=== PATIENT | female | born 1960 | race Caucasian/White ===

== ENCOUNTER → 2016-08-11 | Outpatient (CLI) | payer OTHER ==
[~2016-08-11] MED LIST: IOHEXOL 300 MG/ML 100ml INJECTION ONE; LORA10TA62 PO; NORMAL SALINE 100 ML ONE; SALINE FLUSH 10ml SYRINGE ONE
--- NOTE | 2016-08-11 17:18 | DI ---
Indication: ITS.REASON: R10.12 LEFT UPPER QUAD PAIN PROCEDURE: CT ABD/PELVIS W/CONTRAST ONLY: Encounter: Initial Comparison: None Technique: Axial CT images were performed through the abdomen and pelvis after the administration of intravenous contrast. Coronal and sagittal two-dimensional reformats. Automated Exposure Control and Iterative Reconstruction dose reducing techniques were utilized. Contrast: Omnipaque 300 99 mL Findings: The right middle lobe shows a small 4 to 5 mm subpleural tag on axial image #5. The lung bases are otherwise clear. The liver shows multiple cysts without enhancing mass or bile duct dilatation. The gallbladder appears normal. The spleen appears normal. The pancreas and adrenal glands are within normal limits. The kidneys are normal. No abdominal or pelvic lymphadenopathy. The bladder shows slight wall thickening anteriorly. The uterus is within normal limits. Ovaries are grossly normal. No free fluid. No evidence of a bowel obstruction. Bone windows show no acute findings. Impression: 1. No acute disease process seen. No clear etiology for the patient's left upper quadrant pain. 2. Slight bladder wall thickening could relate to the relatively decompressed state or a cystitis. Recommend clinical and laboratory correlation as indicated. 3. 4 to 5 mm noncalcified right middle lobe pulmonary nodule. Recommend follow-up noncontrast chest CT in six months. .
== END ==
LOC: IMA 08:14
PROVIDERS: ATTEND Family Medicine
DX: R10.12 Left upper quadrant pain (principal); N32.9 Bladder disorder, unspecified; R91.1 Solitary pulmonary nodule
CPT/HCPCS: 74177; J7050; Q9967

== ENCOUNTER 2016-08-27 22:11 | Emergency (ER) | payer OTHER ==
[~2016-08-27] VITALS: Ht 157.5 cm; Wt 73.6 kg
[~2016-08-27 22:11] MED LIST changes: -IOHEXOL 300 MG/ML 100ml INJECTION ONE; -NORMAL SALINE 100 ML ONE; -SALINE FLUSH 10ml SYRINGE ONE
[2016-08-27 22:15] VITALS: Ht 157.5 cm; Wt 73.6 kg
--- NOTE | 2016-08-27 22:29 | NUR ---
PROVIDER DR GUERRERO IN TO SEE PATIENT.
--- NOTE | 2016-08-27 22:37 | ERPDOC ---
Departure Disposition Decision Date: Aug 27, 2016 Disposition Decision Time: 22:37 Disposition: 01 DISCHARGED HOME, SELF-CARE Impression Impression Impression: Primary Impression: Abnormal stools Severity: Mild Condition: Improved Seen By: Physician only Referrals: MILADIS SMILEY (Family) Patient Instructions: ED Abdominal Pain Problems/Meds/Labs Reviewed?: Yes Medications reviewed and manag: Yes Additional Instructions: See Dr. Smiley as scheduled tomorrow, take your stool samples and follow up as directed Follow up care ordered?: Yes HPI - Abdominal Pain General Chief Complaint: Nausea,Vomiting,Diarrhea Stated Complaint: BOWEL ISSUES Time Seen by Provider: 22:13 Source: patient, family History/Exam Limitations: no limitations HPI - Abdominal Pain Initial Comments Patient has been having irregular bowel movements with a feeling of a lump in her left abdomen for several months. She has undergone extensive testing including MRIs CTs and multiple labs. Patient has noticed a near white stringy particles as well as seedlike particles in her stool for the past several days, and use a stool sample that she collected to take to Dr. Miladis Smiley's clinic tomorrow. When she looked the stool sample she saw what she thought were use of worm bodies, and in her words "freaked out." Patient is having no significant physical distress at this time, but is quite concerned that she has things growing inside of her. Occurred At: home Onset: Gradual Allergies: Coded Allergies: No Known Allergies (Unverified , 05/19/14) Past History Past Medical History Psychological: anxiety Surgical History Denies Surgeries Vaccines Hx Influenza Vaccination: No Review of Systems Constitutional Constitutional: DENIES: appetite decrease, appetite increase, chills, dizziness , fever, weakness ENMT Ears: DENIES: pain Hearing: DENIES: hearing loss, tinnitus Balance: DENIES: vertigo Mouth/Throat: DENIES: change in swallowing, change in voice, hoarsness, painful swallowing, sore throat Cardiovascular Cardiac: DENIES: chest pain, dyspnea on exertion Rhythm/Rate: DENIES: irregular beat, palpitations, tachycardia Vascular: DENIES: pedal edema Pulmonary Respiratory: DENIES: cough, dyspnea, pleuritic chest pain GI Upper Abdomen: DENIES: dysphagia, heartburn/indigestion, nausea, pain, vomiting Lower Abdomen: DENIES: blood in stool, constipation, diarrhea, pain General: DENIES: burning, dysuria, frequency, pain, urgency Musculoskeletal General: DENIES: cramps, joint pain, joint swelling, pain, weakness Integumentary Skin: DENIES: rash, sores Neurological General: DENIES: headache, numbness, tingling, vertigo, weakness Physical Exam General General Nourishment: well nourished, well developed, appears stated age Distress Description Patient is significantly anxious, bordering on hysteria General Body Habitus: well groomed Vitals and Pain First Documented Vital Signs Date Time Temp Pulse Resp B/P Pulse Ox O2 Delivery O2 Flow Rate FiO2 08/27/16 22:15 98.0 62 16 168/113 98 Room Air Weight: Kilograms: 73.600 Height (feet): 5 Height (inches): 2.00 Triage Pain Scale: RN VS reviewed by Provider: Yes Normal Exams: Head: Normocephalic w/o trauma Eyes: Pupils are PERRLA w/ EOMI, No scleral icterus, irritation, or foreign bodies noted ENMT: No facial trauma, nasal exudates, pharyngeal erythema, or exudates are noted Chest/Resp: Clear all elizondo, with good airflow, and symmetry bilaterally Abdomen: Bowel sounds positive, soft, non-tender, non-distended, no hepatosplenomegaly, masses or bruits noted Lymphatic: No lymphadenopathy, or lymphedema noted Musculoskeletal: No tenderness, or deformity noted, good range of motion, all extremities Integumentary: No rashes, hives, or bruising noted, hair and nails, without abnormality Neurologic: Patient is alert, and oriented, cranial nerves, motor/sensory/ cerebellar, exams w/o gross deficits, to observation Psychiatric: Patient exhibits, appropriate attention, emotion and affect Progress Progress Progress I examined the patient's stool sample at the bedside, and saw nothing but appeared to be mucoid strings tool. Patient has no visible obvious worms or segments of worms in the stool that I could see tonight. Patient was reassured, will follow-up with Dr. Smiley tomorrow, and continue pathology evaluation of the stool JASWINDER GUERRERO MD Aug 27, 2016 22:37
[2016-08-27 22:40] VITALS: BP 168/113; PULSE 62; RESP 16; TEMP 98; O2SAT 98
== END 2016-08-27 22:40 | disposition home or self-care (01) ==
LOC: ED 22:11
DX: R19.5 Other fecal abnormalities (principal)

== ENCOUNTER 2016-10-09 12:58 | Day surgery (SDC) | payer OTHER ==
[~2016-10-09] VITALS: Ht 156.2 cm; Wt 70.7 kg
[~2016-10-09 12:58] MED LIST changes: +BACI1CAP4 PO; +LIDOCAINE 1% (10mg/ml) 2ml SDV INJ ONE; +LR 1,000 ML IV SCH
--- OUTSIDE RECORDS SUMMARY | 2016-10-09 13:02 | XMS REPORT | Continuity of Care Document ---
Author Author [facility] Organization [facility] Address Unknown Phone Unavailable Support Name Relationship Address Phone JASWINDER GUERRERO MD Caregiver [address] [place] [address] Unavailable MILADIS SMILEY Caregiver [address] [place] [address] [place] [address] Unavailable BOBBY [place] [address] Insurance Providers Guarantor Cherelle Wooten Address [address] [place] [address] C Email DENIED/NO PT PORT 08-27-16 Payer [employer] Policy Number [id number] Subscriber's Name Jose Wooten Relationship 01 Spouse Group Number [id number] Chief Complaint and Reason for Visit Chief Complaint Nausea,Vomiting,Diarrhea Reason for Visit [id number] Problems Active Problems Medical Problem Onset Date Status Elbow pain Unknown Acute Myalgia Unknown Acute Past Problems Medical Problem Onset Date Abnormal stools Unknown Medications Current Home Medications Medication Dose Units Route Directions Days Qty Instructions Start Date Loratadine (Claritin) 10 Mg Tablet 5-10 Mg Oral Daily 05/19/14 Social History Social History Problem Response Recorded Date/Time Onset Date Status Hx Alcohol Use No 05/19/2014 11:23pm Not Applicable Not Applicable Tobacco Usage none 05/19/2014 11:39pm Not Applicable Not Applicable Hospital Discharge Instructions No hospital discharge instructions. Plan of Care Discharge Date 08/27/16 10:40pm Disposition 01 DISCHARGED HOME, SELF-CARE Condition at Discharge Improved Instructions/Education Provided ED Abdominal Pain Prescriptions See Medication Section Referrals MILADIS SMILEY Address: [address] [place] [address] [place] [address] Additional Instructions/Education See Dr. Smiley as scheduled tomorrow, take your stool samples and follow up as directed Care Plan and Goals Physician Care Plan Problem: Abnormal stools Goal: Follow up with primary care provider Instructions: Take medications and follow care plan as discussed/written See Dr. Baljit as scheduled tomorrow, take your stool samples and follow up as directed Functional Status No functional status results. Allergies, Adverse Reactions, Alerts No known allergies. Immunizations Query Response on File Recorded Date/Time Hx Influenza Vaccination No 05/19/14 11:24pm Hx Influenza Vaccination No 05/19/14 11:24pm Vital Signs Acute Vital Signs Vital Response Date/Time Temperature (Fahrenheit) 98.0 deg F (96.8 - 99.1) 08/27/2016 10:15pm Temperature (Calculated Celsius) 36.14293 degrees C (36.0 - 37.3) 08/27/2016 10:15pm Pulse Rate (adult) 62 bpm (60 - 100) 08/27/2016 10:15pm Respiratory Rate 16 breaths/min (10 - 20) 08/27/2016 10:15pm O2 Sat by Pulse Oximetry 98 % (90 - 100) 08/27/2016 10:15pm Blood Pressure 168/113 mm Hg 08/27/2016 10:15pm Height (Feet) 5 feet 08/27/2016 10:15pm Height (Inches) 2.00 inches 08/27/2016 10:15pm Weight (Kilograms) 73.600 kg 08/27/2016 10:15pm Body Mass Index (BMI) 29.0 08/27/2016 10:15pm Results No known relevant diagnostic tests, laboratory data and/or discharge summary. Procedures Procedure Status Date Provider(s) Ct abd & pelv w/contrast Completed 08/11/16 598914"INFUSION, NORMAL SALINE SOLUTION , 250 CC" Completed 08/11/16 059859"LOW OSMOLAR CONTRAST MATERIAL, 300-399 MG/ML IODINE C Completed Encounters Encounter Location Arrival/Admit Date Discharge/Depart Date Attending Provider Departed Emergency Room [facility] 08/27/16 10:11pm 08/27/16 10: 40pm JASWINDER GUERRERO MD Registered Clinic [facility] 08/11/16 8:14am MILADIS SMILEY Recent Diagnosis
[2016-10-09 13:14] VITALS: BP 151/83; PULSE 58; RESP 14; TEMP 98.3; O2SAT 99; Ht 156.2 cm; Wt 70.7 kg
[2016-10-09] MEDS ORDERED: FEXO-11 PO (13:33)
[2016-10-09] MEDS ORDERED: PROPOFOL 500mg 50 ML IV ONE (16:52)
[2016-10-09] MEDS ORDERED: LIDOCAINE 1% (10mg/ml) 2ml SDV ONE (16:53)
[2016-10-09] MEDS ORDERED: BENZOCAINE 20% Top. Anesth. SPRAY UD ONE (16:55)
[2016-10-09] MEDS ORDERED: LIDOCAINE VISCOUS 2% Oral Soln 15ml UD ONE (16:55)
--- NOTE | 2016-10-09 17:06 | ANESPREOP ---
Anesthesia Record Date and Time DATE: 10/09/16 TIME: 17:03 Pre-Op Diagnosis crcs Proposed Surgical Procedure COLONOSCOPY Allergies: Coded Allergies: No Known Allergies (Unverified , 10/09/16) Ht/Wt/BMI Height: 5 ' 1.50 " Weight: 70.700 kg BMI: 29.0 kg/m2 Vital Signs Date Time Temp Pulse Resp B/P Pulse Ox O2 Delivery O2 Flow Rate FiO2 10/09/16 13:14 98.3 58 14 151/83 99 Room Air Medications Inpatient Medications Current Medications Medications (Trade) Dose Ordered Sig/Lizandro Start Time Stop Time Status Last Admin Dose Admin Lactated Ringer's (Lactated Ringers) 1,000 ml @ 30 mls/hr Q24H 10/09/16 06:00 10/09/16 13:31 30 MLS/HR Bacillus Coagulans/Inulin (Probiotic Formula Capsule) 1 Each Capsule, 1 CAP PO DAILY, (Reported) Last Taken: on 10/08/16 0800 Fexofenadine HCl (Yesy Allergy) 60 Mg Tablet , 1 TAB PO BID, (Reported) Do not drink Apple, Mclennan, or Grapefruit juice within 4 hours of this medication, causes decreased absorption Last Taken: on 10/06/16 0800 Loratadine (Claritin) 10 Mg Tablet, 5-10 MG PO DAILY, (Reported) Last Taken: on Unknown Date & Time Currently on Beta Cheryl: No Medical/Surgical History Anesthesia PMH: Reports: Anesthesia Reactions (BREATHING /AIRWAY ISSUES), Obesity, Pneumonia (HX), Denies: Cancer, Glaucoma, Malignant Hyperthermia, Sleep Apnea Smoking Status: Former smoker Has pt. smoked today?: No Use Chewing Tobacco?: No Second Hand Exposure: No Substance Use Type: does not use Substance last used: unknown Alcohol Intake: rarely Last Drink: unknown HX of Last Menstrual Period: SOME BLEEDING WITHIN THE LAST YEAR Past Surgical History Orthopedic Surgeries: Abdominal Surgeries: Genitourinary Surgeries: Cardiac Surgeries: Endocrine Surgeries: Reproductive Surgeries: Yes - D&C; LUMP REMOVED FROM R. BREAST, HOLLY. BREAST FLUID REMOVED Neurological Surgeries: Ear Surgeries: Nose Surgeries: Throat Surgeries: Yes - TONSILS Other Surgeries: Yes - D&C; LUMP REMOVED FROM A BREAST Anesthesia Adverse Reactions: FOUND other Family Hx of Anesthesia Advers: none Hx of Motion Sickness: No Pertinent Findings Test 10/09/16 14:13 Human Chorionic Gonadotropin, Qual Negative (NEGATIVE) EKG Rhythm: Sinus Rhythm Physical Exam Respiratory: Bilat breath sounds equal, Lungs clear Cardiovascular: FOUND Regular rate, rhythm, FOUND No murmur Airway Assessment Mallampati Score: II TMD: 3 Fingerbreadths Neck Extension: Good Overall Assessment: No Airway Concerns ASA: 2 Plan Anesthesia Plan: TIVA Discussion Discussed risks/options/alternatives of anesthesia and questions answered. Patient consents. Nursing pain assessment noted. Present: Spouse Attestation Statement Prior to the delivery of any anesthetic medication, I examined the patient, developed the plan, obtained the patient's consent and discussed the risk and benefits of the procedure with the patient/guardian. JANETH PASCUAL CRNA October 09, 2016 17:06
[2016-10-09] MEDS ORDERED: GLYCOPYRROLATE 0.4mg/2ml INJECTION ONE (17:07)
[2016-10-09 17:29] VITALS: BP 83/51; PULSE 59; RESP 16; TEMP 97.1; O2SAT 98
[2016-10-09 17:44] VITALS: BP 87/63; PULSE 43; RESP 16; O2SAT 94
[2016-10-09 17:59] VITALS: BP 103/51; PULSE 83; RESP 20; O2SAT 100
[2016-10-09 18:10] VITALS: TEMP 97
--- NOTE | 2016-10-09 18:11 | ANESPO ---
Post-Op Note Date 10/09/16 Time: 18:10 Status Pt Participated in Evaluation: Pt participated in person Vital Signs Date Time Temp Pulse Resp B/P Pulse Ox O2 Delivery O2 Flow Rate FiO2 10/09/16 17:59 83 20 103/51 100 Room Air 10/09/16 17:29 97.1 Respiratory Function: Airway patent Cardiovascular Function: Regular pulse Mental Status: Alert/oriented Pain Level Intensity: 0 Hydration: Taking po fluids Complications during Recovery None apparent Follow-Up Instructions Instructions Per Surgeon ELANA CEVALLOS CRNA October 09, 2016 18:11
--- NOTE | 2016-10-10 10:12 | OPNOTEF ---
DATE OF PROCEDURE 10/09/2016 SURGEON Izaiah Santiago MD PREOPERATIVE DIAGNOSIS Personal history of a change in bowel habits, history for epigastric abdominal pain and nausea. POSTOPERATIVE DIAGNOSIS Personal history of a change in bowel habits, history for epigastric abdominal pain and nausea, mild antritis, normal colonoscopy. PROCEDURE Esophagogastroduodenoscopy with biopsies from antrum for permanent pathology as well as for CARRIE assay via cold biopsy technique, colonoscopy with random biopsies throughout colon via cold biopsy technique. ANESTHESIA TIVA BRIEF HISTORY/INDICATIONS Mrs. Wooten is a 56-year-old female who recently presented to my office as a result of her history for epigastric discomfort, nausea, as well as a recent change in her bowel habits. The patient had been experiencing increasing loose stools that were "mucous like" in nature. She did undergo an infectious workup which was found to be negative. As a result of the above indications, it was recommended that she undergo bidirectional endoscopy. For completeness please refer to notes included in the patient's chart. FINDINGS Upon upper endoscopy, esophagus, stomach and duodenum were found to be essentially within normal limits with the exception that the mucosa within the antral portion of the stomach was moderately erythematous in nature. No nancy ulcerations were noted. Biopsies were obtained from the antrum to rule in or rule out the presence of H. pylori. Upon colonoscopy there was no evidence for angiodysplastic lesions, polyps, diverticula or nancy allergies. The colonic mucosa was normal with no suggestion for inflammatory bowel disease/colitis. Nonetheless, multiple random biopsies were obtained throughout the colon to rule in or rule out the process of microscopic/collagenous colitis. DESCRIPTION OF PROCEDURE After informed consent was obtained, the patient was brought to the endoscopy suite and placed on the table in left lateral decubitus position. The patient subsequently underwent total intravenous anesthesia by the nurse wet press tender per my request. Formal time-out was then completed. Next, an Olympus gastroscope was inserted in the oral hypopharynx and subsequently the esophagus under direct visualization. Gastroscope was advanced through the esophagus, stomach, pylorus, duodenal bulb, into second portion of the duodenum. The scope was slowly withdrawn. First and second portions of duodenum were within normal limits. No evidence of duodenitis or ulcerations was noted. The scope was withdrawn back to prepyloric region and antrum. As stated above, the mucosa within the antral portion was moderately erythematous in nature. No nancy ulcerations were noted. Given the patient's symptomatology and the degree of erythema noted within the antrum, I performed a few biopsies from within the antral portion of the stomach via cold biopsy technique. This was submitted for pathologic evaluation as well as for CARRIE assay. J-maneuver was then performed. Cardia and fundus were within normal limits. Endoscopically there was no evidence for hiatal hernia. The scope was allowed to straighten and slowly withdrawn and the remaining corpus of the stomach was well visualized and, again, without noted abnormalities. The scope was withdrawn back to the level of the diaphragm. Squamocolumnar junction was located at the level of the diaphragm and was well demarcated with no endoscopic evidence for Butts's metaplasia. The scope was then slowly withdrawn and the remaining esophageal mucosa found within normal limits. Next, attention was directed towards performing a colonoscopy. First, a digital rectal examination was performed. Normal sphincter tone. No rectal masses were appreciated. An Olympus colonoscope was inserted in the anus and advanced with the lumen of the colon under direct visualization at all times till the cecum was ascertained. Triangulation of the taenia coli and ileocecal valve were identified. The scope was slowly withdrawn, again maintaining visualization of the lumen at all times. As stated above, I did perform random biopsies from the ascending colon, transverse colon, descending colon as well as within the rectum and were placed within a single container. This was done via cold biopsy technique. The entire colon was without evidence for angiodysplastic lesions, polyps, diverticula or nancy malignancies. The mucosa was normal throughout with no suggestion for inflammatory bowel disease/colitis. The mucosa was not erythematous in nature, nor was there any evidence for ulcerations. Once the scope was withdrawn back to the rectal vault, a J-maneuver was then performed. No worrisome perianal pathology was noted. The scope was allowed to straighten and withdrawn through the anal verge. The patient tolerated the procedure without difficulty and was sent back to the preop area in stable condition. Will wait the biopsy results from today's EGD and colonoscopy and will proceed accordingly with further recommendations thereafter. [facility]
== END 2016-10-09 18:10 | disposition home or self-care (01) ==
LOC: SCU 12:58
PROVIDERS: ATTEND Surgery
DX: K29.60 Other gastritis without bleeding (principal); R19.4 Change in bowel habit
CPT/HCPCS: 36415; 43239; 45380; 84703; 87081; J7120